=== PATIENT | male | born 1990 | race Hispanic/Latino ===

== ENCOUNTER 2021-01-12 19:52 | Emergency (ER) | payer SELFPAY ==
[~2021-01-12] VITALS: Ht 170.2 cm; Wt 77.1 kg
[2021-01-12] MEDS ORDERED: HYDROCODONE/APAP 5MG-325MG TAB PO ONE (20:15)
[2021-01-12] MEDS ORDERED: HYDROCODONE/APAP 5MG-325MG TAB ONE (20:39)
[2021-01-12] MEDS ORDERED: NAPROSYN500 MG PO (21:32)
[2021-01-12] MEDS ORDERED: CEFDINIR300 MG PO (21:32)
== END 2021-01-12 22:02 | disposition home or self-care (01) ==
LOC: FSED 20:10
DX: M25.561 Pain in right knee (principal); L03.115 Cellulitis of right lower limb
CPT/HCPCS: 99283